=== PATIENT | female | born 1990 | race Caucasian/White ===

== ENCOUNTER 2016-04-15 21:08 | Inpatient (IN) | payer MEDICAID ==
[2016-04-03 07:40] VITALS: BMI 19.3
[2016-04-15] MEDS ORDERED: LR 500 ML IV PRN ×2 (21:50→23:24)
[2016-04-15] MEDS ORDERED: BUTORPHANOL 1 MG/ML VIAL IV PRN (21:50)
[2016-04-15] MEDS ORDERED: LR 250 ML IV PRN (21:50)
[2016-04-15] MEDS ORDERED: AMPICILLIN 2 GM in NS 100 ML IV ONE (21:50)
[2016-04-15] MEDS ORDERED: LR 1,000 ML IV SCH (22:00)
[2016-04-15 22:08] LABS: ALL NEG? NO
[2016-04-15 22:16] LABS: MDMA* NEG (NEGATIVE); METHAMPHETAMINES NEG (NEGATIVE); OXYCODONE *POSITIVE* (NEGATIVE)
[2016-04-15 22:28] LABS: AUTOMATED BASOPHIL 0.4 % (0-2); AUTOMATED EOSINOPHIL 0.5 % (0-5); AUTOMATED LYMPH 23.4 % (17-44); AUTOMATED NEUTROPHIL 67.7 % (45-76); MPV 8.8 fL (7.4-10.4)
--- NOTE | 2016-04-15 22:32 | HISTPHYS ---
- HISTORY OF PRESENT ILLNESS Age: 25 Estimated Due Date: 04/27/16 Gestational Age: 38 : 4 Para: 2 Patient Presents to:: Labor & Delivery Presents for:: Contractions, Labor, Leaking Fluid Current : No Care - REVIEW OF SYSTEMS Reports/Denies: Reports: Vaginal Bleeding, Contractions, Leaking Fluid Pain: Reports: Abdominal - ALLERGIES Allergies Allergy/AdvReac Type Severity Reaction Status Date / Time No Known Allergies Allergy Verified 04/15/16 14:33 - PAST MEDICAL HISTORY Reports: No Significant History - PAST SURGICAL HISTORY Reports: None - FAMILY HISTORY Family History: Noncontributory - SOCIAL HISTORY Smoking Status: Heavy tobacco smoker (5 or more cigarettes/day or daily pipe/ cigar) - GENITOURINARY HISTORY HX : 4 Para: 2 Live Deliveries (# of pregnancies resulting in a live ): 2 1 Sex: Male Weight: 6 6 Weeks Gestation: 35 2 Infant Sex: Male Weight: 7 13 Weeks Gestation: 40 - PHYSICAL EXAM Vital Signs:: Temperature: 97.9 F (04/15/16 21:30) HR: 108 (04/15/16 21:30) RR: 18 (04/15/16 21:30) BP: 130/87 (04/15/16 21:30) Pulse Ox: () GENERAL: Alert, Oriented, No Acute Distress HEENT: Normal CARDOVASCULAR/CHEST: Normal ABDOMEN: Gravid Fundal Height (cm): 36 GENITOURINARY: Normal. negative: Lesions MUSCULOSKELETAL: Normal EXTERMITIES: Moves All Extremeties. negative: Edema Dilation (cm): 4.5 Effacement (%): 70 Station: -2 Heart Rate: 145 Reactive Contractions: Regular Membranes: SROM Amniotic Fluid: Clear - ASSESSMENT (ACTIVE PROBLEMS) (1) Term Acute Z34.80 - ENCOUNTER FOR SUPRVSN OF NORMAL , UNSP TRIMESTER (2) Active labor at term Acute [id number] - (3) Limited care in third trimester Acute O09.33 - SUPRVSN OF PREG W INSUFFICIENT ANTENAT CARE, THIRD TRIMESTER - PLAN Admit Other Plan: 25 yo at term per patient and early sono in september [place] with [facility]. Reports having had 2 visits in [place]. Denies any complications. Will admit, expect vaginal delivery. Requesting epidural, anesthesia notified.
[2016-04-15] MEDS ORDERED: LIDOCAINE 1% 30 ML VIAL (PRESERVATIVE FREE) ONE (22:38)
[2016-04-15] MEDS ORDERED: OXYTOCIN 1,000 ML IV ONE (22:38)
[2016-04-15] MEDS ORDERED: Vaccine Screening Complete SCH (23:00)
[2016-04-15] MEDS ORDERED: OXYTOCIN 1,000 ML IV SCH (23:00)
[2016-04-15] MEDS ORDERED: Fentanyl/Bupivacaine 100 ML EPI ONE (23:01)
[2016-04-15] MEDS ORDERED: DIPHENHYDRAMINE 50 MG/ML VIAL IV PRN (23:24)
[2016-04-15] MEDS ORDERED: METOCLOPRAMIDE 10 MG/2 ML VIAL IV PRN (23:24)
[2016-04-15] MEDS ORDERED: EPHEDrine 50 MG/ML VIAL IV PRN (23:24)
[2016-04-15] MEDS ORDERED: ONDANSETRON HCL 4 MG/2 ML VIAL IV PRN (23:24)
[2016-04-15] MEDS ORDERED: NALOXONE 0.4 MG/ML AMPULE IV PRN (23:24)
[2016-04-15] MEDS ORDERED: LR 500 ML IV ONE (23:24)
--- NOTE | 2016-04-15 23:24 | HIM.ANES ---
Anesthesia Evaluation & Plan Diagnoses: labor pain Consented Procedure: labor epidural Surgeon:: Josiane Sterling - Focused Review of Systems Cardiac History: No: Hx Hypertension, Hx Cardiac Disorders HEENT: No: Other HEENT Problems Gastrointestinal: No: Hx Gastrointestinal Disorders Neurological/Musculoskeletal: No: Hx Neurological Disorders Psychological: Yes Hx Anxiety, Yes Hx Mental/Emotional Disorders Blood/Autoimmune: No: Hx Blood Transfusions Smoking Status: Heavy tobacco smoker (5 or more cigarettes/day or daily pipe/ cigar) Past Social History: Denies: Alcohol Use - Focused Physical Exam NPO since: after Midnight Mallampati: Class I Neck: Full Range of Motion Cardiovascular/Chest: Normal (RRR no mumurs or rubs.) Respiratory: Lungs clear. negative: Rhonchi, Wheezing Any problems with anesthesia, including nausea and vomiting?: No Any relatives with a history of Malignant Hyperthermia?: No Does patient have a history of Malignant Hyperthermia?: No Beta Alin given (if appropriate): N/A Does the patient have a history of Motion Sickness-: No Other: Problem List Problem Status Onset Active labor at term Acute Limited care in third trimester Acute Term Acute Abscess Acute Shoulder sprain Acute CBC/BMP/Other 04/15/16 22:05 Allergies Allergy/AdvReac Type Severity Reaction Status Date / Time No Known Allergies Allergy Verified 04/15/16 14:33 Home Medications Medication Instructions Recorded Last Taken Type No Home Medications 10/03/15 Unknown History Height and Weight Patient's height 5 ft 6 in Patient's weight 63.503 kg BMI 19.3 Vital Signs Temperature 97.9 F 04/15/16 21:30 Pulse Rate 108 04/15/16 21:30 Respiratory Rate 18 04/15/16 21:30 Blood Pressure 130/87 04/15/16 21:30 Pulse Oxygen Saturation METS - Level of Activity: Climbing stairs(1 flight),walking level ground, running short distance - Anesthetic Plan Anesthesia Type: Epidural ASA Class: 2 -: I have examined this patient and reviewed the medical record. The patient has been assessed prior to anesthesia. Risks and benefits of anesthesia and anesthetic technique options have been discussed and all questions answered. The patient accepts the risk and desires me to proceed with the planned anesthetic.
--- NOTE | 2016-04-15 23:26 | HIM.ANESP ---
Procedure Note DATE OF PROCEDURE: 04/15/16 PREOPERATIVE DIAGNOSIS: Labor Pain Control. POSTOPERATIVE DIAGNOSIS: Same PROCEDURE: Epidural PERFORMING PROVIDER: Natividad Saldana MD DIAGNOSIS: Labor SURGEON: Asher TIME OUT: 2202 Anesthesia START time: 2304 Anesthesia STOP (Delivery) Time : 02:41 MEDICATIONS: INF Bupivacaine 0.125% + Fentanyl 3mcg/ml ml/hr NEEDLE: Tuohy 17G STERILE BARRIERS: sterile x 3, mask, sterile gloves. APPROACH: Midline ATTEMPTS:1 COMPLICATIONS: None. BLOOD LOSS: 0 cubic centimeters. PROCEDURE FINDINGS AND TECHNIQUE: At the request of the patient and mortgage or loan underwriter , an Epidural Block was performed for labor pain relief. Epidural Risk, benefits and alternatives of the procedure were explained and questions answered. Informed consent was obtained, confirmed with patient and on chart. Time out was performed. Contraction, Pulse oximetry, EKG and BP monitoring were established. The patient is a sitting position and lumbar area was prepped and draped in a sterile manner. Skin anesthesia was obtained with 1% Xylocaine infiltration. The Epidural was done in the usual manner. A Tuohy needle was inserted with loss of resistance to NS @ 5cm. Local anesthetic was injected in incremental volumes with negative aspirations throughout, Bolus dose: Lidocaine 1 % 5 cc. There was no pain on injection. Epidural catheter threaded 5 cm into epidural space. Test dose Lidocaine 1.5 % with epinephrine 1:200,000, 3 ml via epidural catheter. Negative test dose. SaO2 98% EKG SR Loading Dose 0 mcg/ml Fentanyl Infusing Dose Bupivacaine 0.125% + Fentanyl 3mcg/ml ml/hr See Watch Child Record (chart) Patient tolerated the procedure well without complications.
[2016-04-15] MEDS ORDERED: Fentanyl/Bupivacaine 100 ML EPI SCH (23:45)
[2016-04-16] MEDS ORDERED: AMPICILLIN 1 GM in NS 100 ML IV SCH (02:00)
[2016-04-16] MEDS ORDERED: ZOLPIDEM TARTRATE 5 MG TAB PO PRN (02:53)
[2016-04-16] MEDS ORDERED: DIBUCAINE OINTMENT 1 OZ TUBE TOP PRN (02:53)
[2016-04-16] MEDS ORDERED: OXYTOCIN 1,000 ML IV ONE (02:53)
[2016-04-16] MEDS ORDERED: SODIUM CHLORIDE 0.9% 3 ML FLUSH FLUSH PRN (02:53)
[2016-04-16] MEDS ORDERED: LANOLIN OINTMENT 0.25 OZ TUBE TOP PRN (02:53)
--- NOTE | 2016-04-16 02:55 | OBDELNOTE ---
Delivery Note - Problem/Diagnosis (1) Term Status: Acute (2) Active labor at term Status: Acute (3) Limited care in third trimester Status: Acute (4) Single live Status: Acute (5) Vaginal delivery Status: Acute - Admitting Diagnosis Reason for Visit: Leaking Fluid Admission Date: 04/15/16 Admission time: 21:25 Gestational Age: 38 - Procedures Procedure(s): Non-Stress Test Labor Anesthesia/Analgesia: Epidural Date: 04/16/16 Spontaneous Vaginal Delivery Presentation: Vertex Episiotomy: None Laceration: None EBL: 100 Fluid: Clear Placenta: Spontaneous Description: Normal Cord: 3 Vessels, Nuchal Cord - Procedures Procedures: None - Data Sex: Male Weight: 3.147 kg (1min): 8 (5min): 9 Feeding Plans for : Breast Complications: No Complications [place] to:: LDRP/Mother's Room - /Operative Complications /Op Complications: None Discharge Planning - REASON FOR ADMISSION Patient Presents to:: Labor & Delivery Reason for Visit: Contractions, Labor, Leaking Fluid - DISCHARGE INSTRUCTIONS
--- NOTE | 2016-04-16 02:56 | PCM.DCS92 ---
<Josiane Sterling - Last Filed: 04/16/16 02:55> - Primary/Secondary Discharge Diagnoses (1) Term Acute Z34.80 - ENCOUNTER FOR SUPRVSN OF NORMAL , UNSP TRIMESTER (2) Active labor at term Acute [id number] - (3) Limited care in third trimester Acute O09.33 - SUPRVSN OF PREG W INSUFFICIENT ANTENAT CARE, THIRD TRIMESTER (4) Single live Acute Z37.0 - SINGLE LIVE (5) Vaginal delivery Acute O80 - ENCOUNTER FOR FULL-TERM UNCOMPLICATED DELIVERY - HOSPITAL COURSE /Op Complications: None - DISCHARGE INSTRUCTIONS Discharge Disposition: Home Discharge Condition: Good Cognitive Discharge Status: Unimpaired Fuctional Discharge Status: Independent Patient Leaving with Prescriptions?: Yes Prescriptions: Hydrocodone Bit/Acetaminophen [Hydrocodon-Acetaminophen 5-325] 1 - 2 tab PO Q4H PRN #30 tab PRN Reason: Pain Ibuprofen Tablet [Motrin] 800 mg PO TID #30 tab Referrals: Josiane Sterling MD [Staff Physician] - 05/28/16 2:00 pm - Diet Diet at Discharge: Regular - Activity Activity: Pelvic Rest, No Driving No Driving for: 2 weeks - Instructions Call Physician for: Sudden/Sever Chest Pain, Foul Smelling Discharge, Pain/ Redness in Calf/Leg, Temperature Above 100.4 - DC Summary Notes Discharge Medications: *See "Discharge Medication List" for a complete list of Home Medications and Discharge Medications.* Obstetric Hospital Course - Admitting Diagnosis Reason for Visit: Leaking Fluid Admission Date: 04/15/16 Admission time: 21:25 Gestational Age: 38 - Procedures Procedure(s): Non-Stress Test Labor Anesthesia/Analgesia: Epidural Date: 04/16/16 Spontaneous Vaginal Delivery Presentation: Vertex Episiotomy: None Laceration: None EBL: 100 Fluid: Clear Placenta: Spontaneous Description: Normal Cord: 3 Vessels, Nuchal Cord - Procedures Procedures: None - Infant Data Sex: Male Weight: 3.147 kg (1min): 8 (5min): 9 Feeding Plans for Infant: Breast Complications: No Complications [place] to:: LDRP/Mother's Room - /Operative Complications /Op Complications: None <Jennie Dao - Last Filed: 04/17/16 13:03> - Primary/Secondary Discharge Diagnoses (1) care following vaginal delivery Acute Z39.2 - ENCOUNTER FOR ROUTINE FOLLOW-UP - DC Summary Notes Discharge Medications: *See "Discharge Medication List" for a complete list of Home Medications and Discharge Medications.*
[2016-04-16] MEDS ORDERED: Pharmacy Order Set Alert SCH (03:00)
[2016-04-16] MEDS: IBUPROFEN 800 MG TAB PO SCH ×4 (04:08→21:39)
[2016-04-16] MEDS ORDERED: SODIUM CHLORIDE 0.9% 3 ML FLUSH FLUSH SCH (06:00)
[2016-04-16] MEDS ORDERED: LR 1,000 ML IV SCH (09:52)
--- NOTE | 2016-04-16 11:10 | OBGYNPROG ---
- Subjective Post Day: 0 Reports: Ambulating, Tolerating Regular Diet, Voiding Freely, Moderate Lochia. Denies: Complaints Pain: Reports: Well Managed - Objective Vital Signs: Temperature: 97.7 F (04/16/16 10:25) HR: 86 (04/16/16 10:25) RR: 18 (04/16/16 10:25) BP: 110/67 (04/16/16 10:25) Pulse Ox: () General: Alert, Oriented, No Acute Distress ABDOMEN: Non-Distended, Non-Tender, Soft Fundus: At Umbilicus, Firm. Denies: Tender Lochia: Moderate EXTERMITIES: Moves All Extremeties. Denies: Pain/Tenderness OBGYN Progress Note - ASSESSMENT (1) Vaginal delivery Status: Acute Code(s): O80 - ENCOUNTER FOR FULL-TERM UNCOMPLICATED DELIVERY Comment: Stable - PLAN Routine Care
[2016-04-16] MEDS: OXYCODONE HCL 5 MG TABLET PO PRN ×3 (12:08→19:54)
[2016-04-16] MEDS ORDERED: Docusate Sodium 100 MG CAP PO SCH (21:00)
[2016-04-17] MEDS: OXYCODONE HCL 5 MG TABLET PO PRN ×2 (02:45→09:55)
[2016-04-17 05:45] VITALS: BP 113/62; PULSE 72; TEMP 97.7
[2016-04-17] MEDS: IBUPROFEN 800 MG TAB PO SCH ×3 (06:08→15:43)
--- NOTE | 2016-04-17 10:56 | OBGYNPROG ---
- Subjective Post Day: 1 Reports: Complaints (back pain at epidural site), Ambulating, Out of Bed, Tolerating Regular Diet, Voiding Freely, Moderate Lochia, Well. Denies: Nausea, Vomitting, Chest Pain, Shortness of Breath Pain: Reports: Abdominal, Back - Objective Vital Signs: Last Vital Signs Temp 97.7 F 04/17/16 05:43 Pulse 72 04/17/16 05:43 Resp 16 04/17/16 05:43 BP 113/62 04/17/16 05:43 Pulse Ox General: Alert, Oriented, No Acute Distress ABDOMEN: Non-Distended, Non-Tender, Soft Fundus: At Umbilicus, Firm Bladder: Voiding & Emptying EXTERMITIES: Denies: Edema, Cyanosis, Clubbing OBGYN Progress Note Progress Note: Laboratory Results - last 24 hr 04/15/16 04/15/16 04/17/16 22:05 22:05 06:05 Hgb 10.9 L Hct 33.3 L Hep Bs Antigen Negative Rubella Immunity Screen 1.51 VZV IgG Antibody 1933 - ASSESSMENT (1) care following vaginal delivery Status: Acute Code(s): Z39.2 - ENCOUNTER FOR ROUTINE FOLLOW-UP - PLAN Routine Care heating pad PRN to back
[2016-04-17 16:37] LABS: CHLAMY BY NUCLEIC ACID AMP Negative (Negative)
[2016-04-18 08:37] LABS: GC BY NUCLEIC ACID AMP Negative (Negative)
== END 2016-04-17 16:47 | disposition home or self-care (01) | DRG 775 ==
LOC: LD 21:08 → MASU 21:33
PROVIDERS: ADMIT Obstetrics & Gynecology; ATTEND Obstetrics & Gynecology
PROC: 10E0XZZ Delivery of Products of Conception, External Approach (ICD-10-PCS; principal; 2016-04-16)
PROC: 3E0S3CZ (ICD-10-PCS; 2016-04-16)
DX: O69.81X0 Labor and delivery complicated by cord around neck, without compression, not applicable or unspecified (principal); F17.210 Nicotine dependence, cigarettes, uncomplicated; O99.334 Smoking (tobacco) complicating childbirth; Z3A.38 38 weeks gestation of pregnancy; Z37.0 Single live birth
CPT/HCPCS: 59400; 62318; 80307; 81002; 83986; 85014; 85018; 85025; 86592; 86703; 86762; 86787; 86900; 86901; 87340; 87491; 87591; 96361; 96365; 96366; 96368; 96375; J0290; J2001; J2405; J2590; J3490; J7030